=== PATIENT | female | born 1995 | race Caucasian/White ===

== ENCOUNTER 2023-08-24 17:40 | Observation (INO) ==
[2023-08-24] MEDS: Ondansetron 4 mg VIAL 2 MG/ML 2 ml VIAL IV ONE (18:53)
[2023-08-24] MEDS: NS 0.9% 1000 ml BAG 1,000 ML IV ONE (18:53)
[2023-08-24] MEDS: Morphine 4 MG/ML VIAL (1 ml) IV ONE ×3 (18:53→21:51)
[2023-08-24 18:54] LABS: ABS Eosinophils 0.2 10^3/uL (0.0-0.5); ABS Lymphocytes 2.5 10^3/uL (1.0-4.8); ABS Monocytes 0.5 10^3/uL (0.0-0.9); ABS Neutrophils 4.8 10^3/uL (1.5-7.6); ABS Nucleated RBC 0.01 10^3/ul; Eosinophil % 2.5 %; Hematocrit 42.5 % (35-45); Hemoglobin 14.4 g/dL (11.5-14.3); Lymphocyte % 31.1 %; Mean Corpuscular Hemoglobin 28.7 pg (27-33); Mean Corpuscular Hgb Conc 33.9 g/dL (31-36); Mean Corpuscular Volume 84.9 fL (80-97); Mean Platelet Volume 8.5 fL (7.5-11.2); Nucleated Red Blood Cells % 0.1 %/100WBC (0.0-0.8); Platelet Count 299 10^3/uL (150-450); Red Blood Count 5.01 10^6/uL (3.63-4.92); Red Cell Distribution Width 13.1 % (12-17); White Blood Count 8.1 10^3/uL (3.8-11.8)
[2023-08-24 19:06] LABS: INR 1.84 (0.83-1.13)
[2023-08-24 19:42] LABS: Albumin 4.9 g/dL (3.2-5.2); Albumin/Globulin Ratio 1.9 (1-3); Creatinine, Serum 0.7 mg/dL (0.51-0.95); Globulin 2.6 g/dL (2-4); Potassium 3.8 mmol/L (3.5-5.0); Total Bilirubin 0.7 mg/dL (0.2-1.0); Total Protein 7.5 g/dL (6.4-8.9); eGFR CKD-EPI 122.2 (>60)
[2023-08-24 19:47] LABS: HCG Pregnancy 115.03 mIU/mL
[2023-08-24 20:19] LABS: Urine Appearance Clear; Urine Bilirubin Negative (Negative); Urine Blood 3+ (Negative); Urine Color Light-Yellow; Urine Glucose Negative (Negative); Urine Ketones 3+ (Negative); Urine Nitrite Negative (Negative); Urine Protein Negative (Negative); Urine Specific Gravity 1.014 (1.002-1.030); Urine Urobilinogen Negative (Negative); Urine pH 5.5 (5.0-8.0)
[2023-08-24 20:22] LABS: Urine Bacteria Absent /HPF (Absent); Urine Red Blood Cell 3+(>10/hpf) /HPF (0-Trace); Urine Squamous Epithelial Cell Present /HPF (Absent); Urine White Blood Cell Trace(0-5/hpf) /HPF (0-Trace)
[2023-08-24] MEDS: Lactated Ringers 1000 ml BAG 1,000 ML IV SCH ×2 (20:28→23:51)
[2023-08-24] MEDS: Acetaminophen IV 1 GM/100ML 1,000 MG/100 ML BAG IV ONE (21:51)
[2023-08-25] MEDS: Ondansetron 4 mg VIAL 2 MG/ML 2 ml VIAL IV PRN (00:36)
[2023-08-25] MEDS ORDERED: Lidocaine 1% VIAL 10 MG/ML 30 ML VIAL ONE (07:54)
[2023-08-25] MEDS ORDERED: Propofol 10 MG/ML 20 ML BTL ONE ×3 (07:56→08:46)
[2023-08-25] MEDS ORDERED: Sevoflurane BOTTLE ONE (07:57)
[2023-08-25] MEDS ORDERED: fentaNYL 100 mcg/2 ml 50 MCG/ML VIAL ONE ×3 (07:59→10:34)
[2023-08-25] MEDS ORDERED: Midazolam 2 mg/2 ml VIAL 1 mg/ml 2 ml VIAL (2 mg) ONE (07:59)
[2023-08-25] MEDS ORDERED: Lidocaine 2% PF 5 ML VIAL ONE (08:02)
[2023-08-25] MEDS ORDERED: Ondansetron 4 mg VIAL 2 MG/ML 2 ml VIAL ONE (08:43)
[2023-08-25] MEDS ORDERED: Dexamethasone IV 4 MG/ML VIAL 1 ml VIAL ONE (08:43)
[2023-08-25] MEDS ORDERED: Oxytocin 10 UNITS/ML 1 ML VIAL ONE ×3 (08:50→10:27)
[2023-08-25] MEDS ORDERED: Amphetamine/Dextroam ER 20(NF) 20 mg CAP.ER PO SCH (09:00)
[2023-08-25] MEDS ORDERED: Ondansetron 4 mg VIAL 2 MG/ML 2 ml VIAL IV PRN (09:10)
[2023-08-25] MEDS: NS 0.9% IVPB ONE (09:27)
[2023-08-25] MEDS: DOXYCYCLINE IVPB ONE (09:27)
[2023-08-25] MEDS: fentaNYL 100 mcg/2 ml 50 MCG/ML VIAL IV PRN (09:30)
[2023-08-25] MEDS ORDERED: Naloxone 0.4 mg VIAL 0.4 mg/ml 1 ml VIAL IV PRN (09:38)
[2023-08-25] MEDS ORDERED: Lactated Ringers 1000 ml BAG 1,000 ML IV SCH (10:00)
[2023-08-25] MEDS ORDERED: Oxytocin in LR 20,000 MILLI.UNIT/1,000 ML BAG IV SCH (10:25)
[2023-08-25] MEDS ORDERED: Prochlorperazine 5 mg/ml 2 ml VIAL (10 mg) ONE (10:34)
[2023-08-25] MEDS: Prochlorperazine 5 mg/ml 2 ml VIAL (10 mg) IV PRN (10:41)
[2023-08-25] MEDS: Oxytocin in LR 20,000 MILLI.UNIT/1,000 ML BAG IV SCH (10:50)
[2023-08-25 11:49] VITALS: BP 120/79
[2023-08-25 15:26] LABS: ABS Lymphocytes 0.8 10^3/uL (1.0-4.8); ABS Monocytes 0.1 10^3/uL (0.0-0.9); ABS Neutrophils 7.4 10^3/uL (1.5-7.6); Eosinophil % 0.1 %; Hematocrit 34.2 % (35-45); Hemoglobin 11.6 g/dL (11.5-14.3); Mean Corpuscular Hgb Conc 33.9 g/dL (31-36); Mean Corpuscular Volume 85.6 fL (80-97); Mean Platelet Volume 8.9 fL (7.5-11.2); Platelet Count 213 10^3/uL (150-450); Red Cell Distribution Width 12.8 % (12-17); White Blood Count 8.4 10^3/uL (3.8-11.8)
[2023-08-25 15:38] LABS: Activated Partial Thrombo Time 34.2 seconds (26.0-38.0); INR 1.25 (0.83-1.13); Mixing Study Protime 14.1 seconds (9.5-12.8)
[2023-08-25 15:52] LABS: Platelet Count 206 10^3/ul (150-450)
[2023-08-25 21:02] LABS: Schistocytes ABSENT
[2023-08-26 15:08] LABS: PT/After 1 Hour Incubation 11.8 seconds (9.5-12.8); PT/Normal Control 12.1 seconds (9.5-12.8)
== END 2023-08-25 17:15 | disposition home or self-care (01) ==
LOC: EDHOLD 17:40 → ED 17:40 → EDHOLD 08-25 07:07 → AA 08-25 07:48
PROVIDERS: ADMIT Obstetrics & Gynecology; ATTEND Obstetrics & Gynecology
PROC: O.GYD&C (2023-08-25 08:30)